=== PATIENT | female | born 1935 | race Caucasian/White ===

== ENCOUNTER 2017-02-15 07:30 | Day surgery (SDC) | payer MEDICARE, OTHER ==
[2017-02-15] MEDS ORDERED: Lactated Ringers 1,000 ML IV SCH ×2 (08:30→11:45)
[2017-02-15] MEDS ORDERED: ceFAZolin 1 GM in Sodium Chloride 0.9% 50 ML IV ONE (09:00)
[2017-02-15] MEDS ORDERED: fentaNYL 100 MCG/2 ML SDV IV ONE (09:05)
[2017-02-15] MEDS ORDERED: Dexamethasone 4 MG/ML 5 ML MDV IVPUSH ONE (09:05)
[2017-02-15] MEDS ORDERED: Phenylephrine 1% 10 MG/ML SDV IV ONE (09:05)
[2017-02-15] MEDS ORDERED: Midazolam 1 MG/ML 2 ML SDV IV ONE (09:05)
[2017-02-15] MEDS ORDERED: Succinylcholine/Normal Saline 200 MG/10 ML Syringe IV ONE (09:05)
[2017-02-15] MEDS ORDERED: Morphine 10 MG/ML Syringe IVPUSH ONE (09:05)
[2017-02-15] MEDS ORDERED: ceFAZolin 1 GM Vial IV ONE (09:05)
[2017-02-15] MEDS ORDERED: Rocuronium 50 MG/5 ML Vial IV ONE (09:05)
[2017-02-15] MEDS ORDERED: Lactated Ringers 1,000 ML IV ONE (09:05)
[2017-02-15] MEDS ORDERED: Ondansetron 4 MG/2 ML SDV IVPUSH ONE (09:05)
[2017-02-15] MEDS ORDERED: Ketorolac 15 MG/ML SDV IVPUSH ONE (09:05)
[2017-02-15] MEDS ORDERED: Propofol 200 MG/20 ML SDV IV ONE (09:05)
[2017-02-15] MEDS ORDERED: Neostigmine Methylsulfate 1 MG/ML 5 ML Syringe IV ONE (09:05)
--- NOTE | 2017-02-15 09:08 | PCM.PN ---
- General Info Date of Service: 02/15/17 - Review of Systems Systems Review Comment:: 82 y/o female here for laparoscopic repair of ventral incisional hernia. The site is confirmed with the patient and marked. Procedure again reviewed with the patient. There has been no recent change to her health status and her recent H and P is reviewed. She agrees to proceed. - Patient Data Vitals - most recent: Last Vital Signs Temp 98.4 F 02/15/17 08:40 Pulse 60 02/15/17 08:40 Resp 20 02/15/17 08:40 BP 124/48 L 02/15/17 08:40 Pulse Ox 95 02/15/17 08:40 Weight - most recent: 147 lb Med Orders - Current: Current Medications Lactated Ringer's (Ringers, Lactated) 1,000 mls @ 125 mls/hr IV ASDIRECTED [facility] Last Admin: 02/15/17 08:50 Dose: 125 mls/hr Cefazolin Sodium 1 gm/ Sodium (Chloride) 50 mls @ 200 mls/hr IV ONETIME ONE Stop: 02/15/17 09:14 - Problem List Review Problem List Initiated/Reviewed/Updated: Yes - My Orders Last 24 Hours: My Active Orders 02/14/17 Dinner Nothing Per Oral Diet [DIET] 02/15/17 07:45 Patient Status [ADT] Routine 02/15/17 08:00 Verify Patient Consent Obtain [RC] ASDIRECTED Sequential Compression Device [OM.PC] Routine 02/15/17 08:30 Patient to Empty Bladder [RC] ASDIRECTED Lactated Ringers [Ringers, Lactated] 1,000 ml IV ASDIRECTED Peripheral IV Insertion Adult [OM.PC] Routine 02/15/17 09:00 ceFAZolin [Ancef] 1 gm Sodium Chloride 0.9% [Normal Saline] 50 ml IV ONETIME - Assessment Assessment:: Ventral incisional hernia - Plan Plan:: Laproscopic repair of ventral incisional hernia
[2017-02-15] MEDS ORDERED: Bupivacaine 0.5%/EPINEPHrine 1:200,000 50 ML MDV INJECT ONE (09:37)
[2017-02-15] MEDS ORDERED: ceFAZolin 1 GM Vial ONE (09:38)
[2017-02-15] MEDS ORDERED: Promethazine 6.25 MG in Sodium Chloride 0.9% 50 ML IV PRN (09:57)
[2017-02-15] MEDS ORDERED: fentaNYL 100 MCG/2 ML SDV IVPUSH PRN ×2 (09:57→10:12)
[2017-02-15] MEDS ORDERED: Morphine 2 MG/ML Syringe IVPUSH PRN (09:57)
[2017-02-15] MEDS ORDERED: Morphine 10 MG/ML Syringe ONE (10:30)
[2017-02-15] MEDS: Morphine 2 MG/ML Syringe IVPUSH PRN ×7 (11:38→20:45)
[2017-02-15] MEDS ORDERED: Acetaminophen/HYDROcodone 325-5 MG Tab PO PRN (11:38)
--- NOTE | 2017-02-15 11:39 | PCM.OPNOTE ---
- General Post-Op/Procedure Note Date of Surgery/Procedure: 02/15/17 Operative Procedure(s): Laparoscopic Repair of Ventral Incisional Hernia with Composix Mesh and Lysis of Adhesions Findings: 2 midline ventral incisional hernias with extensive intra-abdominal adhesions Pre Op Diagnosis: Ventral Incisional Hernia Post-Op Diagnosis: Ventral Incisional Hernia. Intra-abdominal adhesions Anesthesia Technique: General ET tube Primary Surgeon: Cooper Calzada Second Cutter: Guerrero Hatch Pathology: none Output, Urine Amount: 0 EBL in mLs: 25 Complications: None Condition: Good
[2017-02-15] MEDS: ceFAZolin 1 GM in Sodium Chloride 0.9% 50 ML IV SCH (16:23)
[2017-02-15] MEDS: Pantoprazole 40 MG Tab.CR *PTOM PO SCH (17:51)
[2017-02-15] MEDS: Acetaminophen/HYDROcodone 325-5 MG Tab PO PRN ×2 (17:51→22:05)
[2017-02-15] MEDS: Docusate Sodium 100 MG Cap *PTOM PO SCH (20:47)
[2017-02-16] MEDS: ceFAZolin 1 GM in Sodium Chloride 0.9% 50 ML IV SCH ×2 (01:00→09:16)
--- NOTE | 2017-02-16 01:41 | OR ---
DATE OF OPERATION: 02/15/2017 SURGEON: Cooper Calzada MD AIR CONDITIONING INSULATION INSTALLER: certified surgical assistant, Dr. Guerrero Hatch (assistant manager bilingual necessary to facilitate exposure, dissection, and efficiency). REFERRING PHYSICIAN: Dr. Krishnamurthy. PREOPERATIVE DIAGNOSIS: Ventral incisional hernia. POSTOPERATIVE DIAGNOSES: 1. Ventral incisional hernia. 2. Intraabdominal adhesions. OPERATION PERFORMED: Laparoscopic repair of ventral incisional hernia with Composix mesh and lysis of intraabdominal adhesions. INDICATIONS FOR SURGERY: This 82-year-old female, who has had multiple previous surgeries, has developed a ventral incisional hernia. This is becoming increasingly symptomatic and she comes for elective repair. FINDINGS: In the mid abdomen, just above the umbilicus, in the midline, the patient has a moderate-sized ventral hernia. The fascial defect is approximately 7 cm. Just superior to this also in the midline is a second ventral hernia with a 2 cm fascial defect. There is extensive intraabdominal adhesions with omentum and loops of small bowel adherent to the anterior abdominal wall in the region of the hernias as well as in other areas of the abdomen. PROCEDURE IN DETAIL: The patient was taken to the operating room. She was given general endotracheal anesthesia and the abdomen was sterilely prepped and draped. Through a stab wound incision in the right upper quadrant, the Visiport catheter is used under direct visualization to enter the peritoneal cavity. This was done safely, and then pneumoperitoneum to a pressure of 15 mmHg was achieved with carbon dioxide. There were extensive intraabdominal adhesions noted, but with persistent careful visualization, a small open area was noted in the right lower quadrant, and then in this area, a 5-mm trocar was placed under direct visualization. Utilizing this 5-mm trocar, blunt dissection was used to take down adhesions to improve the exposure. Eventually, using blunt and sharp careful dissection, enough adhesions were freed from the anterior abdominal wall to allow exposure of the left upper quadrant where another 5-mm trocar was placed. Considerable time was then taken freeing additional adhesions from the anterior abdominal wall. It is estimated that approximately an hour of operating time was used in freeing adhesions to allow exposure of the anterior abdominal wall. The majority of these adhesions were taken down, but there was noted to be a loop of small bowel adherent to the anterior abdominal wall on the patient's left side. 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 It was felt that there was just enough room between these adhesions and the hernia defect to allow good placement of the mesh and secure fixation here. A piece of Composix mesh 6 x 8 inches in size was selected. Four axis sutures were placed and the mesh was soaked in Ancef and saline solution. The mesh was then inserted through the largest trocar site and the mesh was then manipulated in proper position with the axis sutures being brought out through the anterior abdominal wall in the 4 quadrants holding the mesh against the anterior abdominal wall in good position. Then, again under direct visualization, absorbable tacks were placed through the mesh into the anterior abdominal wall securing this mesh in position. A closely spaced outer row was placed around the periphery of the mesh, and then a more widely spaced second inner row was placed to hold the mesh in good position, centered over the fascial defect, but also with great care being used to avoid any injury to the bowel still adherent to the far left side of the anterior abdominal wall. Once the mesh had been secured and careful inspection showed no sign of any complication, the largest trocar site was closed with 0 Vicryl using a port closure device. The remaining trocars were removed under direct visualization and pneumoperitoneum was evacuated. The wounds were irrigated with Betadine and saline solution. Skin incisions were approximated with interrupted 4-0 Vicryl in subcuticular stitch, Steri-Strips, and Benzoin. Antibiotic ointment and sterile dressings were placed. The patient was then awakened, extubated, and taken from the operating room in satisfactory condition. ESTIMATED BLOOD LOSS: 25 mL. COMPLICATIONS: None. PROGNOSIS: Good. /[id number] RACHID/STEVEN CAMPOS
[2017-02-16] MEDS: Acetaminophen/HYDROcodone 325-5 MG Tab PO PRN ×2 (02:44→06:52)
[2017-02-16] MEDS ORDERED: Levothyroxine 88 MCG Tab *PTOM PO SCH (06:00)
--- NOTE | 2017-02-16 06:40 | PCM.SURGPN ---
- General Info Date of Service: 02/16/17 POD#: 1 Post-Op Diagnosis: Ventral Incisional Hernia Functional Status: Reports: pain controlled (patient states pain is mild) - Review of Systems General: Denies: Fever, Chills Pulmonary: Denies: shortness of breath Gastrointestinal: Reports: No symptoms Genitourinary: Reports: no symptoms Neurological: Reports: No Symptoms - Patient Data Vitals - most recent: Last Vital Signs Temp 98.1 F 02/16/17 05:00 Pulse 65 02/16/17 05:00 Resp 16 02/16/17 05:00 BP 121/54 L 02/16/17 05:00 Pulse Ox 94 L 02/16/17 05:00 Weight - most recent: 147 lb I&O - last 24 hours: Intake & Output 02/15/17 02/15/17 02/16/17 14:59 22:59 06:59 Intake Total 415 1759 1094 Output Total 0 250 300 Balance 415 1509 794 Med Orders - Current: Current Medications Hydrocodone Bitart/Acetaminophen (Widener 325-5 Mg) 1 tab PO Q4H PRN PRN Reason: Pain (mild 1-3) Last Admin: 02/15/17 14:04 Dose: 1 tab Hydrocodone Bitart/Acetaminophen (Widener 325-5 Mg) 2 tab PO Q4H PRN PRN Reason: Pain (moderate 4-6) Last Admin: 02/16/17 02:44 Dose: 2 tab Amlodipine Besylate (Norvasc) 10 mg PO DAILY [facility] Aspirin (Halfprin) 81 mg PO DAILY [facility] Docusate Sodium (Colace) 100 mg PO BID [facility] Last Admin: 02/15/17 20:47 Dose: 100 mg Enalapril Maleate (Vasotec) 10 mg PO DAILY [facility] Ferrous Sulfate (Ferrous Sulfate) 325 mg PO DAILY [facility] Promethazine HCl 6.25 mg/ (Sodium Chloride) 50.25 mls @ 200 mls/hr IV Q4H PRN PRN Reason: Nausea/Vomiting Lactated Ringer's (Ringers, Lactated) 1,000 mls @ 100 mls/hr IV ASDIRECTED [facility] Last Admin: 02/15/17 13:15 Dose: 100 mls/hr Cefazolin Sodium 1 gm/ Sodium (Chloride) 50 mls @ 200 mls/hr IV Q8H [facility] Stop: 02/16/17 09:14 Last Admin: 02/16/17 01:00 Dose: 200 mls/hr Levothyroxine Sodium (Synthroid) 88 mcg PO DAILY@0600 [facility] Last Admin: 02/16/17 06:17 Dose: 88 mcg Metoprolol Tartrate (Lopressor) 25 mg PO DAILY [facility] Morphine Sulfate (Morphine) 2 mg IVPUSH Q1H PRN PRN Reason: Pain (severe 7-10) Last Admin: 02/15/17 20:45 Dose: 2 mg Multivitamins/Minerals (Vitamins And Minerals) 1 tab PO DAILY [facility] Pantoprazole Sodium (Protonix) 40 mg PO BIDAC [facility] Last Admin: 02/15/17 17:51 Dose: 40 mg Sertraline HCl (Zoloft) 150 mg PO DAILY [facility] Discontinued Medications Bupivacaine HCl/Epinephrine Bitart (Marcaine 0.5%/Epinephrine 1:200,000) 11 ml INJECT .STK-MED ONE Stop: 02/15/17 09:38 Last Admin: 02/15/17 09:37 Dose: 11 ml Cefazolin Sodium (Ancef) 1 gm .XX .STK-MED ONE Stop: 02/15/17 09:39 Last Admin: 02/15/17 09:38 Dose: 1 gm Fentanyl (Sublimaze) 25 mcg IVPUSH Q5M PRN PRN Reason: Pain Fentanyl (Sublimaze) 50 mcg IVPUSH Q5M PRN PRN Reason: Pain Lactated Ringer's (Ringers, Lactated) 1,000 mls @ 125 mls/hr IV ASDIRECTED [facility] Last Admin: 02/15/17 08:50 Dose: 125 mls/hr Cefazolin Sodium 1 gm/ Sodium (Chloride) 50 mls @ 200 mls/hr IV ONETIME ONE Stop: 02/15/17 09:14 Last Admin: 02/15/17 08:55 Dose: 200 mls/hr Morphine Sulfate (Morphine) 1 mg IVPUSH Q5M PRN PRN Reason: Pain Morphine Sulfate (Morphine) 2 mg IVPUSH Q5M PRN PRN Reason: Pain Last Admin: 02/15/17 11:56 Dose: 2 mg Morphine Sulfate (Morphine) Confirm Administered Dose 10 mg .ROUTE .STK-MED ONE Stop: 02/15/17 10:31 Last Admin: 02/15/17 14:53 Dose: Not Given - Exam Wound/Incisions: healing well, drainage (minimal on some of the incisions). No : erythema General: alert, oriented Lungs: Normal respiratory effort Abdomen: soft Extremities: no tenderness/swelling Psy/Mental Status: alert, normal affect - Problem List Review Problem List Initiated/Reviewed/Updated: Yes - My Orders Last 24 Hours: Active Orders 24 hr Category Date Time Status Patient Status [ADT] Routine ADT 02/15/17 07:45 Ordered Patient Status [ADT] Routine ADT 02/15/17 11:38 Active Ambulate [RC] ASDIRECTED Care 02/15/17 11:38 Active Ambulate [RC] PER UNIT ROUTINE Care 02/15/17 11:38 Active Antiembolic Devices [RC] 08,16,00 Care 02/15/17 11:41 Active Intake and Output [RC] 06,14,22 Care 02/15/17 11:40 Active Oxygen Therapy [RC] PRN Care 02/15/17 11:38 Active RT Incentive Spirometry [RC] Q1HWA Care 02/15/17 11:38 Active VTE/DVT Education [RC] Click To Edit Care 02/15/17 11:41 Active Vital Signs [RC] PER UNIT ROUTINE Care 02/15/17 11:38 Active Clear Liquid Diet [DIET] Diet 02/15/17 Lunch Ordered Acetaminophen/HYDROcodone [Widener 325-5 MG] Med 02/15/17 11:38 Active 1 tab PO Q4H PRN Acetaminophen/HYDROcodone [Widener 325-5 MG] Med 02/15/17 11:38 Active 2 tab PO Q4H PRN Aspirin [Halfprin] Med 02/16/17 09:00 Active 81 mg PO DAILY Docusate Sodium [Colace] Med 02/15/17 21:00 Active 100 mg PO BID Enalapril [Vasotec] Med 02/16/17 09:00 Active 10 mg PO DAILY Ferrous Sulfate Med 02/16/17 09:00 Active 325 mg PO DAILY Lactated Ringers [Ringers, Lactated] 1,000 ml Med 02/15/17 11:45 Active IV ASDIRECTED Levothyroxine [Synthroid] Med 02/16/17 06:00 Active 88 mcg PO DAILY@0600 Metoprolol Tartrate [Lopressor] Med 02/16/17 09:00 Active 25 mg PO DAILY Morphine Med 02/15/17 11:38 Active 2 mg IVPUSH Q1H PRN Multivitamins/Minerals [Vitamins and Minerals] Med 02/16/17 09:00 Active 1 tab PO DAILY Pantoprazole [ProTONIX] Med 02/15/17 17:30 Active 40 mg PO BIDAC Promethazine [Phenergan] 6.25 mg Med 02/15/17 09:57 Active Sodium Chloride 0.9% [Normal Saline] 50 ml IV Q4H Sertraline [Zoloft] Med 02/16/17 09:00 Active 150 mg PO DAILY amLODIPine [Norvasc] Med 02/16/17 09:00 Active 10 mg PO DAILY ceFAZolin [Ancef] 1 gm Med 02/15/17 17:00 Active Sodium Chloride 0.9% [Normal Saline] 50 ml IV Q8H DVT/VTE Prophylaxis Reflex [OM.PC] Per Unit Routine Oth 02/15/17 11:41 Ordered Peripheral IV Insertion Adult [OM.PC] Routine Oth 02/15/17 08:30 Ordered Sequential Compression Device [OM.PC] Routine Oth 02/15/17 08:00 Ordered Medication Orders Hydrocodone Bitart/Acetaminophen (Widener 325-5 Mg) 1 tab PO Q4H PRN PRN Reason: Pain (mild 1-3) Last Admin: 02/15/17 14:04 Dose: 1 tab Hydrocodone Bitart/Acetaminophen (Widener 325-5 Mg) 2 tab PO Q4H PRN PRN Reason: Pain (moderate 4-6) Last Admin: 02/16/17 02:44 Dose: 2 tab Admin: 02/15/17 22:05 Dose: 2 tab Admin: 02/15/17 17:51 Dose: 2 tab Amlodipine Besylate (Norvasc) 10 mg PO DAILY [facility] Aspirin (Halfprin) 81 mg PO DAILY [facility] Docusate Sodium (Colace) 100 mg PO BID [facility] Last Admin: 02/15/17 20:47 Dose: 100 mg Enalapril Maleate (Vasotec) 10 mg PO DAILY [facility] Ferrous Sulfate (Ferrous Sulfate) 325 mg PO DAILY [facility] Promethazine HCl 6.25 mg/ (Sodium Chloride) 50.25 mls @ 200 mls/hr IV Q4H PRN PRN Reason: Nausea/Vomiting Lactated Ringer's (Ringers, Lactated) 1,000 mls @ 100 mls/hr IV ASDIRECTED [facility] Last Admin: 02/15/17 13:15 Dose: 100 mls/hr Cefazolin Sodium 1 gm/ Sodium (Chloride) 50 mls @ 200 mls/hr IV Q8H [facility] Stop: 02/16/17 09:14 Last Admin: 02/16/17 01:00 Dose: 200 mls/hr Admin: 02/15/17 16:23 Dose: 200 mls/hr Levothyroxine Sodium (Synthroid) 88 mcg PO DAILY@0600 [facility] Last Admin: 02/16/17 06:17 Dose: 88 mcg Metoprolol Tartrate (Lopressor) 25 mg PO DAILY [facility] Morphine Sulfate (Morphine) 2 mg IVPUSH Q1H PRN PRN Reason: Pain (severe 7-10) Last Admin: 02/15/17 20:45 Dose: 2 mg Admin: 02/15/17 16:24 Dose: 2 mg Admin: 02/15/17 15:26 Dose: 2 mg Admin: 02/15/17 13:59 Dose: 2 mg Admin: 02/15/17 12:55 Dose: 2 mg Multivitamins/Minerals (Vitamins And Minerals) 1 tab PO DAILY [facility] Pantoprazole Sodium (Protonix) 40 mg PO BIDAC [facility] Last Admin: 02/15/17 17:51 Dose: 40 mg Sertraline HCl (Zoloft) 150 mg PO DAILY [facility] - Assessment Assessment (Free Text/Narrative):: POD#1 Repair Ventral Hernia via Laparoscope - Doing well - Plan Plan (Free Text/Narrative):: Advance diet this am and if tolerates well then discharge Rx Hydrocodone for pain
[2017-02-16] MEDS: Pantoprazole 40 MG Tab.CR *PTOM PO SCH (07:58)
[2017-02-16] MEDS ORDERED: [UNRECOGNIZED DRUG - OTHER] PO SCH (09:00)
[2017-02-16] MEDS ORDERED: Metoprolol Tartrate 25 MG Tab *PTOM PO SCH (09:00)
[2017-02-16] MEDS ORDERED: ENALAPRIL 10 MG PO SCH (09:00)
[2017-02-16] MEDS ORDERED: Aspirin 81 MG Tab.EC PO SCH (09:00)
[2017-02-16] MEDS ORDERED: amLODIPine 10 MG Tab *PTOM PO SCH (09:00)
[2017-02-16] MEDS ORDERED: Sertraline 100 MG Tab *PTOM PO SCH (09:00)
[2017-02-16] MEDS ORDERED: Ferrous Sulfate 325 MG Tab *PTOM PO SCH (09:00)
[2017-02-16] MEDS: Docusate Sodium 100 MG Cap *PTOM PO SCH (09:21)
[2017-02-16 09:26] VITALS: BP 137/57
== END 2017-02-16 13:20 | disposition home health service (06) ==
LOC: EEVIPCON 07:30 → FB.SDS 07:30 → FB.MS 11:38 → FB.SDS 02-16 13:20
PROVIDERS: ATTEND Surgery
PROC: 0WUF4JZ Supplement Abdominal Wall with Synthetic Substitute, Percutaneous Endoscopic Approach (ICD-10-PCS; principal; 2017-02-15)
DX: K43.2 Incisional hernia without obstruction or gangrene (principal); K66.0 Peritoneal adhesions (postprocedural) (postinfection); Z93.3 Colostomy status; I25.10 Atherosclerotic heart disease of native coronary artery without angina pectoris; Z95.1 Presence of aortocoronary bypass graft; Z95.5 Presence of coronary angioplasty implant and graft; I10 Essential (primary) hypertension; M19.90 Unspecified osteoarthritis, unspecified site; F32.9 Major depressive disorder, single episode, unspecified; E78.5 Hyperlipidemia, unspecified; E03.9 Hypothyroidism, unspecified; G47.00 Insomnia, unspecified; Z79.82 Long term (current) use of aspirin; Z79.899 Other long term (current) drug therapy; Z88.0 Allergy status to penicillin; Z95.0 Presence of cardiac pacemaker
CPT/HCPCS: 00752; 49654; 94150; A9270; C1781; J0690; J1100; J1885; J2250; J2270; J2370; J2405; J2704; J3010; J7050; J7120